=== PATIENT | male | born 1995 | race Caucasian/White ===

== ENCOUNTER 2021-04-06 21:29 | Emergency (ER) | payer SELFPAY ==
[2021-04-06 21:37] VITALS: BP 101/80; PULSE 85; RESP 16; TEMP 36.9; O2SAT 99
--- NOTE | 2021-04-06 21:49 | ED.GENADUL_ITS ---
Discharge Plan Disposition Patient Disposition: HOME Condition: Improving Discharge Details Chief Complaint: ETOHWithdr Clinical Impression: Anxiety, Alcohol abuse ED Provider: Heber Haddad Home Meds and New Rx's Prescriptions: No Action No Known Home Meds RF: 0 Discharge Instructions Instructions: Abuse of Alcohol (ED), Anxiety (ED) Additional Instructions: You were seen by our local women's soccer coach. Continue your efforts to decrease alcohol abuse. Sandie Hidalgo from [facility] stated you may be reconsidered for admission tomorrow. Medical Decision Making This is a 26-year-old male who states he is a chronic daily alcoholic with last drink this morning. He presented from his home which he states is [facility] to a treatment center in [facility] [address] ([facility]). He states he was not accepted to do some interpersonal reactions with staff members and now presents emerged department. He states he feels quite anxious, is concerned for withdrawal, but does confirm his last drink was this morning. He arrives with a pulse in the 80s, blood pressure 110/80, somewhat animated and anxious. The evening staff at the [facility] treatment center state that they have no knowledge of the patient's presentation to the facility, I did receive a call from the automobile service station mechanic of [facility], Sandie Hidalgo, who stated to me that the patient was intoxicated, making threats, was not appropriate for admission to facility and was interviewed by [facility] police. I do not feel that he presents with alcohol withdrawal syndrome. Rather, he certainly has a high level of anxiety. Is not a danger to himself or others. He was given 1 mg of Ativan, ate a sandwich, and was seen by the women's soccer coach. Patient improved following food and anxiolytic. He states he has no thoughts of harming himself or others. Care management was contacted and suggested the patient be allowed to stay in the waiting room overnight. HPI General Mode of arrival: ambulatory . Date/Time Provider Initiated Documentation: 04/06/21 21:31 . Limitations to Documentation: no limitations . Information obtained by: patient . History of Present Illness 26 year old M presents to the emergency department with the chief complaint of Anxious and concerned for alcohol withdrawal, described as moderate, and is localized to the lower extremity. Patient reports no radiation. Patient started experiencing this hour(s) and it has been constant. No relieving factors improve symptom(s), No exacerbating factors reported . Patient notes no other symptoms.; denies seizure, syncope and weakness. Patient did receive the following treatments prior to arrival, none Related Data Home Medications Medication Instructions Recorded Confirmed Unknown [No Known Home Meds] 04/06/21 04/06/21 Allergies Allergy/AdvReac Type Severity Reaction Status Date / Time Fish Containing Products Allergy Unverified 04/06/21 21:43 General Stated Complaint: ETOHWithdr TROY: 3 Review of Systems Narrative: Last drink this morning. States he was unable to be accepted to treatment center. Lives in [facility]. Denies recent medical illness. 6 systems reviewed and otherwise negative [facility] Social History Smoking/Tobacco Use Status: Current every day Tobacco Type: cigarettes Smoking risk assessment performed?: Yes Alcohol Intake: current Alcohol Intake frequency: 0-2 drinks per day Drug use: Occasionally Substance use type: marijuana Do you feel safe at home: Yes Exam Narrative Exam Narrative: GEN: awake, alert, oriented 3. Anxious, interactive. HEAD: Normocephalic, atraumatic ENT: Mucous membranes moist, oropharynx unremarkable, External ear exam unremarkable EYES: PERRL, EOMI NECK: Full ROM, no YENI, no menigismus CHEST/RESP: Nontender, clear to auscultation bilateral, no wheeze/rhonchi/rales CARDIOVASCULAR: RRR, no murmur, rub parveen. 2+ Rad pulse bilateral ABDOMEN: Soft, nontender, no mass. +Bowel sounds EXT: Full ROM, no edema, no rash Neuro: Grossly normal neurologic exam, conversant, interactive. Psych: Speech fluent, thoughts congruent, affect anxious Course Vital Signs Vital signs: Vital Signs Temperature 36.9 C 04/06/21 21:37 Pulse 85 04/06/21 21:37 Respiratory Rate 16 04/06/21 21:37 Blood Pressure 101/80 04/06/21 21:37 Pulse Oximetry 99 04/06/21 21:37 Temperature 36.9 C 04/06/21 21:37 Temperature Source Skin 04/06/21 21:37 Pulse 85 04/06/21 21:37 Respiratory Rate 16 04/06/21 21:37 Respiratory Effort Non-Labored 04/06/21 21:43 Respiratory Pattern Normal 07/19/21 21:41 Blood Pressure 101/80 04/06/21 21:37 Blood Pressure Position Sitting 04/06/21 21:37 Pulse Oximetry 99 04/06/21 21:37 Oxygen Delivery Method Room Air 04/06/21 21:37 Oxygen Flow Rate 0 04/06/21 21:37 Pain Level 7 04/06/21 21:37
[2021-04-06] MEDS: LORazepam 1 MG TAB PO (21:59)
--- NOTE | 2021-04-06 22:33 | NUR.NOTE ---
wildlife science professor in at bedside to talk with pt and offer resources.:
--- NOTE | 2021-04-07 00:22 | NUR.NOTE ---
pt resting quietly at this time. pt discharged at this time. allowed to sleep in the ER until am.
--- NOTE | 2021-04-07 01:51 | NUR.NOTE ---
pt sleeping. no s/sxs of distress noted. no signs of withdrawl. :
[2021-04-07 06:32] VITALS: BP 118/68; PULSE 68; RESP 17; TEMP 36.4; O2SAT 100
--- NOTE | 2021-04-07 06:39 | NUR.NOTE ---
pt states i dont feel well. deliberate shaking noted. when drinking or talking on the phone, no shaking noted. vs stable. pt not tachycardic. discharge instructins given by beverly coello:
== END 2021-04-07 07:00 | disposition home or self-care (01) ==
LOC: ER 04-07 06:38
PROVIDERS: Emergency Provider Emergency Medicine
DX: F41.9 Anxiety disorder, unspecified (principal); F10.10 Alcohol abuse, uncomplicated
CPT/HCPCS: 99283